=== PATIENT | male | born 1945 | race African-American/Black ===

== ENCOUNTER 2022-12-07 08:17 | Day surgery (SDC) | payer OTHER ==
[2022-11-11 11:31] VITALS: BMI 34.3
[2022-12-07 09:21] VITALS: RESP 18
[2022-12-07] MEDS ORDERED: LIDOCAINE HCL 2% JELLY 10 ML CARTRIDGE ONE (10:16)
[2022-12-07 11:01] VITALS: BP 116/93; PULSE 80; TEMP 97.9
== END 2022-12-07 11:10 | disposition home or self-care (01) ==
LOC: FASU-ENDO 08:17
PROVIDERS: ATTEND Internal Medicine Gastroenterology
PROC: 0DB68ZX Excision of Stomach, Via Natural or Artificial Opening Endoscopic, Diagnostic (ICD-10-PCS; 2022-12-07)
PROC: 0DB28ZX Excision of Middle Esophagus, Via Natural or Artificial Opening Endoscopic, Diagnostic (ICD-10-PCS; 2022-12-07)
PROC: 0DB98ZX Excision of Duodenum, Via Natural or Artificial Opening Endoscopic, Diagnostic (ICD-10-PCS; principal; 2022-12-07 10:19)
DX: K29.50 Unspecified chronic gastritis without bleeding (principal); K21.00 Gastro-esophageal reflux disease with esophagitis, without bleeding; K44.9 Diaphragmatic hernia without obstruction or gangrene; R13.10 Dysphagia, unspecified
CPT/HCPCS: 88305-TC; 88342-TC

== ENCOUNTER 2023-02-08 09:29 | Day surgery (SDC) | payer OTHER ==
[2023-02-04 15:14] VITALS: BMI 34.3
[2023-02-08 11:23] VITALS: PULSE 73; RESP 18; TEMP 97.8
[2023-02-08 11:42] VITALS: BP 115/68
== END 2023-02-08 11:51 ==
LOC: FASU-ENDO 09:29
PROVIDERS: ATTEND Internal Medicine Gastroenterology
PROC: 0DB78ZX Excision of Stomach, Pylorus, Via Natural or Artificial Opening Endoscopic, Diagnostic (ICD-10-PCS; 2023-02-08)
PROC: 0DB48ZX Excision of Esophagogastric Junction, Via Natural or Artificial Opening Endoscopic, Diagnostic (ICD-10-PCS; 2023-02-08)
PROC: 0DB98ZX Excision of Duodenum, Via Natural or Artificial Opening Endoscopic, Diagnostic (ICD-10-PCS; principal; 2023-02-08 11:02)
DX: K22.70 Barrett's esophagus without dysplasia (principal); K29.50 Unspecified chronic gastritis without bleeding; K22.2 Esophageal obstruction; Z87.19 Personal history of other diseases of the digestive system
CPT/HCPCS: 82962